=== PATIENT | male | born 1980 | race Caucasian/White ===

== ENCOUNTER 2021-01-23 01:51 | Emergency (ER) | payer OTHER, MEDICAID, SELFPAY ==
[2021-01-23 02:00] VITALS: BP 120/70; PULSE 76; RESP 18; TEMP 36.6; O2SAT 99
--- NOTE | 2021-01-23 02:56 | ED_ITS ---
HPI - Medical Clearance General Chief complaint: Medical Clearance Stated complaint: thinks he's going crazy, casino kicked him out Time Seen by Provider: 01/23/21 02:45 Source: patient Mode of arrival: Ambulatory Limitations: no limitations History of Present Illness HPI Narrative: This is a 40-year-old male who states that he came to the emergency department for wound on his left foot. He states there was a scab which he pulled off and has not been healing. Patient is homeless. He was at [facility] followed by [facility] emergency department and then here in the past 24-36 hours. Patient told nursing staff that [place] the [place] and was [place] and brought here by police. He denies any other issues or symptoms to myself although when he checked in he put that he ?thinks he is going greasy and the casino kicked him out. Patient denies any other issues or concerns. He states that it has been difficult to keep his feet dry with the current weather and being homeless. He states it is uncomfortable. States has a history of vertebral fracture was supposed to have surgery with cement placement but refused this. Related Information Allergies Allergy/AdvReac Type Severity Reaction Status Date / Time hydrocodone [HYDROCODONE] Allergy Mild RASH Unverified 03/07/18 12:44 oyster extract Allergy Mild HIVES Unverified 03/07/18 12:44 [OYSTER EXTRACT] Review of Systems Review of Systems ROS Unobtainable: All systems reviewed & are unremarkable except as noted in HPI and below Patient History Social History Smoking Status: Current every day smoker Smoking Status: Current every day smoker alcohol intake frequency: a few times a week Substance Use Type: marijuana Exam Narrative Exam Narrative: GEN: well nourished, well appearing male, alert and oriented x 3, patient appears to be in mild distress. HEENT: Atraumatic, pupils are equal round reactive to light, extraocular movements are intact. HEART: Regular rate and rhythm without murmur, clicks, rubs. Pulses are equal in upper and lower extremities LUNGS:Lungs clear to auscultation, no wheezes, rales, crackles, chest moves symmetrically ABD:bowel sounds normal, soft, non-tender, no guarding, rebound, rigidity, no masses noted, no hepatosplenomegaly :No CVA tenderness MSCL: Non-tender, no muscle atrophy, muscles strength 5/5 upper and lower extremities, full range of motion, normal gait NEURO:CN 2-12 intact, sensation normal SKIN: Patient has a wound on the dorsum of his left foot that is approximately he 0.4 cm in circumference, there is some slight ulceration and there is a large scab in the center which has been pulled up but is partially attached. There is no erythema, there is no drainage. Patient is only mildly tender to touch. He has 2+ pulses in the left foot. Cap refills less than 2 seconds in his normal range of motion. Initial Vital Signs Initial Vital Signs: Vital Signs Temperature 97.8 F 01/23/21 02:00 Pulse Rate 76 01/23/21 02:00 Respiratory Rate 18 01/23/21 02:00 Blood Pressure 120/70 01/23/21 02:00 Pulse Oximetry 99 01/23/21 02:00 Scores GCS [place] coma scale eye opening: Spontaneous Mahamed coma scale verbal response: Orientated Mahamed coma scale motor response: Obey commands Mahamed coma scale total score: 15 MDM - Medical Clearance MDM Narrative Medical decision making narrative: This is a 40-year-old homeless male with complaint of a scabbed wound on his left foot which does appear somewhat chronic but does not appear infected. Discussed proper foot care which can be difficult homeless population. He has no other complaints currently for myself. Appears alert, appropriate and competent. Discharge Plan Departure Patient Disposition: Home Clinical Impression: Wound of left foot Activity Restrictions/Additional Instructions: Try to keep your feet clean and dry. Do not pick or pull off the scab on your foot. Wound Care: Keep wound(s) clean and dry. Wash daily with soap and water only. You may use topical antibiotic ointment 1-2 times daily to the affected area. If wound condition worsens (increased/expanding redness, developing fluid blisters, or worsening pain), either contact your doctor for an urgent re- assessment , or return to the Emergency Department. Return to the Emergency Department for any new or worsening symptoms. Return if fever greater than 100.4 Fahrenheit, increased swelling, increasing pain or worsening symptoms such as increased discharge or spreading redness.
--- NOTE | 2021-01-23 03:13 | PC.NURSE ---
He was dirty and his clothes were damp when he came,they were removed and warm blankets applied after.
--- NOTE | 2021-01-23 03:20 | PC.NURSE ---
He has small approx. .5 cm lesion that is scabbed on dorsum of left foot,pink surrounding it and no drainage.
[2021-01-23] MEDS: BACITRACIN OINT 0.9 GM PCKT 1 APPLIC TOP (03:54)
[2021-01-23 04:17] VITALS: BP 125/66; PULSE 80; RESP 18; O2SAT 98
[2021-01-23 06:51] VITALS: BP 121/70; PULSE 76; RESP 18; TEMP 36.6; O2SAT 98
--- NOTE | 2021-01-23 06:55 | PC.NURSE ---
bacitracin and bandaid was applied to lesion on his foot before he left.
== END 2021-01-23 06:55 | disposition home or self-care (01) ==
PROVIDERS: Emergency Provider Emergency Medicine
DX: S91.302A Unspecified open wound, left foot, initial encounter (principal); F10.920 Alcohol use, unspecified with intoxication, uncomplicated
CPT/HCPCS: 99281

== ENCOUNTER 2021-01-23 19:25 | Emergency (ER) | payer OTHER, MEDICAID, SELFPAY ==
[2021-01-23 19:30] VITALS: BP 118/72; PULSE 81; RESP 18; TEMP 36.1; O2SAT 98; BMI 29.7
--- NOTE | 2021-01-23 19:41 | PC.NURSE ---
Called [facility] [address] for ETOH detox and was advised by nathan Bolaños RN that pt does not qualify for admission due to being 5 days meth free and concern for withdrawal. Dr Brothers made aware. Pt states that he is tired of being homeless and needs a place to stay. provided with scrubs and blanket and is in room 13. offered food and water.
--- NOTE | 2021-01-23 20:08 | ED.MEDCLEAR ---
HPI - Medical Clearance General Chief complaint: Medical Clearance Stated complaint: ETOH Time Seen by Provider: 01/23/21 19:31 Source: patient and EMS Mode of arrival: EMS Limitations: no limitations History of Present Illness HPI Narrative: Patient is a 40-year-old male with known Laura mom and he is homeless presenting for the 2nd time today. He was seen evaluated earlier this morning for foot pain and being [place] out by the casino. He again was kicked out by the casino he is frustrated about being homeless and states he really does not have anywhere to go. He actually does not remember the last time when he had a roof over his head. He denies any symptoms or complaints he is just frustrated with life. He denies any homicidal or suicidal ideations. Related Information Allergies Allergy/AdvReac Type Severity Reaction Status Date / Time hydrocodone [HYDROCODONE] Allergy Mild RASH Verified 01/23/21 19:32 oyster extract Allergy Mild HIVES Verified 01/23/21 19:32 [OYSTER EXTRACT] Review of Systems Review of Systems ROS Unobtainable: All systems reviewed & are unremarkable except as noted in HPI and below Constitutional Constitutional: Denies chills, Denies fever(s), Denies lethargy and Denies weakness Cardiovascular Cardiovascular: Denies chest pain, Denies irregular heart rhythm, Denies lightheadedness, Denies palpitations, Denies dyspnea, Denies dyspnea on exertion and Denies orthopnea Respiratory Respiratory: Denies cough, Denies dyspnea, Denies dyspnea on exertion and Denies wheezing Gastrointestinal Gastrointestinal: Denies abdominal pain, Denies change in bowel habits, Denies diarrhea, Denies nausea and Denies vomiting Musculoskeletal Musculoskeletal: Denies back pain, Denies myalgias and Denies arthralgias Integumentary/Breasts Skin/Breast: Denies pruritus, Denies erythema, Denies rash and Denies wounds Neurologic Neurologic: Denies weakness Endocrine Endocrine: Denies palpitations Allergic/Immunologic Allergic/Immunologic: Denies wheezing Patient History Social History Smoking Status: Current every day smoker Smoking Status: Current every day smoker alcohol intake frequency: a few times a week Substance Use Type: marijuana Exam Initial Vital Signs Initial Vital Signs: Vital Signs Temperature 97 F L 01/23/21 19:30 Pulse Rate 81 01/23/21 19:30 Respiratory Rate 18 01/23/21 19:30 Blood Pressure 118/72 01/23/21 19:30 Pulse Oximetry 98 01/23/21 19:30 GENERAL: alert cooperative 40-year-old male CARDIOVASCULAR: peripheral pulses in tact, cap refill <2 sec RESPIRATORY: No respiratory distress, speaks in full sentences without difficulty EXTREMITIES: Normal range of motion, no clubbing or edema. Neurovascularly intact NEUROLOGICAL: Cranial nerves II through XII grossly intact. Normal gait and speech. SKIN: Warm, dry, no petechiae, no rashes or lesions. MDM - Medical Clearance MDM Narrative Medical decision making narrative: Patient initially was requesting detox in a. 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 We have called [facility] they will not take him based on his last use of methamphetamine. The patient has no complaints except that he is homeless. At this time no indication for blood work. No bed is available for detox and they will not take him. Discharge Plan Departure Patient Disposition: Home Clinical Impression: Alcohol intoxication Qualifiers: Complication of substance-induced condition: uncomplicated Qualified Code(s): F10.920 - Alcohol use, unspecified with intoxication, uncomplicated Activity Restrictions/Additional Instructions: *You have been diagnosed with alcohol intoxication *Continue to take medications as directed *Follow up with your primary care provider in 2-3 days *Return to ER if you should have any new, worsening or concerning symptoms Referrals: [facility] [Outside]
[2021-01-23 20:43] VITALS: BP 92/63; PULSE 72; RESP 18; TEMP 36.6; O2SAT 98
== END 2021-01-23 20:44 | disposition home or self-care (01) ==
PROVIDERS: Emergency Provider Emergency Medicine
DX: F10.920 Alcohol use, unspecified with intoxication, uncomplicated (principal)
CPT/HCPCS: 99281